=== PATIENT | female | born 1950 | race Caucasian/White ===

== ENCOUNTER 2019-09-16 12:39 | Emergency (ER) | payer MEDICARE, OTHER ==
--- NOTE | 2019-09-16 13:43 | ER Document Report ---
ED Medical Screen (RME) - General Stated Complaint: BACK PAIN Time Seen by Provider: 09/16/19 13:42 Primary Care Provider: KAREN SUAREZ MD [Primary Care Provider] - Follow up as needed Notes: 69-year-old female was sent from her primary care doctors for PE rule out. Patient states she has been having left mid back pain and pain upon deep breathing since Monday. Patient states she recently traveled long distance. Patient states she was being seen at her primary care doctor for a bladder infection and was sent here due to that. Patient states that while she was being checked at her primary care doctors her heart rate did go up. Lungs clear to auscultation bilaterally. Regular rate and rhythm. I have greeted and performed a rapid initial assessment of this patient. A comprehensive ED assessment and evaluation of the patient, analysis of test results and completion of the medical decision making process with be conducted by additional ED providers. - Related Data Allergies/Adverse Reactions: Sulfa (Sulfonamide Antibiotics) Allergy (Verified 05/07/14 16:19) Past Medical History - Past Medical History Cardiac Medical History: Reports: Hx Hypercholesterolemia, Hx Hypertension Past Surgical History: Reports: Hx Cholecystectomy, Hx Hysterectomy - Immunizations Hx Diphtheria, Pertussis, Tetanus Vaccination: Yes Physical Exam - Vital signs Vitals: Temp Pulse Resp BP Pulse Ox 98.7 F 83 16 145/66 H 95 09/16/19 12:45 09/16/19 12:45 09/16/19 12:45 09/16/19 12:45 09/16/19 12:45 Course - Vital Signs Vital signs: Temp Pulse Resp BP Pulse Ox 98.7 F 83 16 145/66 H 95 09/16/19 12:45 09/16/19 12:45 09/16/19 12:45 09/16/19 12:45 09/16/19 12:45 Doctor's Discharge - Discharge Referrals: KAREN SUAREZ MD [Primary Care Provider] - Follow up as needed
[2019-09-16 15:21] LABS: INTERNATIONAL RATION (INR) 0.92; PROTHROMBIN TIME 12.3 SEC (11.4-15.4)
[2019-09-16 16:27] LABS: ABSOLUTE BASOPHILS # (AUTO) 0.1 10^3/uL (0.0-0.2); ABSOLUTE EOSINOPHILS # (AUTO) 0.1 10^3/uL (0.0-0.6); ABSOLUTE LYMPHOCYTES (AUTO) 2.8 10^3/uL (0.5-4.7); ABSOLUTE MONOCYTES (AUTO) 0.9 10^3/uL (0.1-1.4); ABSOLUTE NEUT (AUTO) 7.8 10^3/uL (1.7-8.2); BASOPHILS % (AUTO) 1.1 % (0-2); EOSINOPHILS % (AUTO) 0.8 % (0-6); HEMOGLOBIN 13.4 g/dL (12.0-15.5); MEAN CORPUSCULAR HEMOGLOBIN 30.4 pg (27.0-33.4); MEAN CORPUSCULAR HGB CONC 33.6 g/dL (32.0-36.0); MEAN CORPUSCULAR VOLUME 90 fl (80-97); MONOCYTES % (AUTO) 7.6 % (3-13); PLATELET COUNT 335 10^3/uL (150-450); RED BLOOD COUNT 4.42 10^6/uL (3.72-5.28); RED CELL DISTRIBUTION WIDTH 13.6 % (11.5-14.0); SEGMENTED NEUTROPHILS % (AUTO) 66.5 % (42-78); TOTAL CELLS COUNTED % (AUTO) 100 %; WHITE BLOOD COUNT 11.7 10^3/uL (4.0-10.5)
[2019-09-16 16:43] LABS: ALBUMIN 3.8 g/dL (3.5-5.0); ALKALINE PHOSPHATASE 89 U/L (38-126); ANION GAP 10 (5-19); ASPARTATE AMINO TRANSFERASE 29 U/L (14-36); BILIRUBIN,DIRECT 0.2 mg/dL (0.0-0.4); BILIRUBIN,TOTAL 0.3 mg/dL (0.2-1.3); BLOOD UREA NITROGEN 12 mg/dL (7-20); CALCIUM 9.2 mg/dL (8.4-10.2); CARBON DIOXIDE 26 mmol/L (22-30); CHLORIDE 97 mmol/L (98-107); GLUCOSE 85 mg/dL (75-110); POTASSIUM 4.1 mmol/L (3.6-5.0); TOTAL PROTEIN 6.9 g/dL (6.3-8.2)
--- NOTE | 2019-09-16 17:56 | RADIOLOGY REPORT (SQ) ---
EXAM DESCRIPTION: CTA CHEST COMPLETED DATE/TIME: 09/16/2019 5:09 pm REASON FOR STUDY: pleuritic pain, recent long distance travel COMPARISON: None. TECHNIQUE: CT scan of the chest performed using helical scanning technique with dynamic intravenous contrast injection. Images reviewed with lung, soft tissue and bone windows. Reconstructed coronal and sagittal MPR images reviewed. Additional 3 dimensional post-processing performed to develop Maximal Intensity Projection images (PA P). All images stored on PACS. All CT scanners at this facility use dose modulation, iterative reconstruction, and/or weight based d osing when appropriate to reduce radiation dose to as low as reasonably achievable (ALARA). [facility]: Dose Right [facility]: CareDose [facility]: Dose Right [facility]: Teradose 4D [facility]: SignalFuse CONTRAST TYPE AND DOSE: contrast/concentration: Isovue 350.00 mg/ml; Total Contrast Delivered: 61.0 ml; Total Saline Delivered: 80.0 ml Contrast bolus optimized for the pulmonary arteries. Not diagnostic for the aorta. RENAL FUNCTION: GFR > 60. RADIATION DOSE: CT Rad equipment meets quality standard of care and radiation dose reduction techniq ues were employed. CTDIvol: 9.9 - 15.0 mGy. DLP: 544 mGy-cm. . LIMITATIONS: None. FINDINGS: LUNGS AND PLEURA: No pneumothorax. Scattered subpleural pulmonary nodules, largest in the inferior lingula measuring 8 mm. No pleural effusions. AORTA AND GREAT VESSELS: No aneurysm. Contrast bolus not optimized for the aorta. HEART: No pericardial effusion. No significant coronary artery calcifications. PULMONARY ARTERIES: No emboli visualized in the main pulmonary arteries or the segmental branches. HILAR AND MEDIASTINAL STRUCTURES: Scattered nodes, several calcified. HARDWARE: None in the chest. UPPER ABDOMEN: No significant findings. Limited exam. THYROID AND OTHER SOFT TISSUES: No masses. No adenopathy. BONES: No acute or significant finding. 3D MIPS: Confirm above findings. OTHER: No other significant finding. IMPRESSION: No emboli visualized in the main pulmonary arteries or the segmental branches. Scattered subpleural pulmonary nodules, largest in the inferior lingula measuring 8 mm, and scattered mediasti nal nodes, many calcified suggesting old granulomatous disease. COMMENT: Quality ID # [id number]: Final reports with documentation of one or more dose reduction techniques (e.g., Automated exposure control, adjustment of the mA and/or kV according to patient size, use of iterative reconstruction technique) TECHNICAL DOCUMENTATION: JOB ID: [id number] [place]-72 2010 [employer]- All Rights Reserved Reading location - IP/workstation name: [email or web address]
--- NOTE | 2019-09-16 18:08 | ER Document Report ---
ED General - General Chief Complaint: Back Pain Stated Complaint: BACK PAIN Time Seen by Provider: 09/16/19 13:42 Primary Care Provider: KAREN SUAREZ MD [ACTIVE STAFF] - Follow up as needed Mode of Arrival: Ambulatory Information source: Patient - [facility] Notes: Patient presents with upper back pain. In mid back pain. She went and saw her primary provider today who referred her here for a CTA. She has had some recent traveling to the [facility]. Patient has no previous history of PEs or DVTs. Patient has had no significant cough cold or congestion. The pain is worse with a deep breath or movement. Is better with rest. It is a sharp pain. Is mild to moderate. Is located in the center of the upper part of her back. It does radiate across her back. No chest pain however. No abdominal pain. No significant leg swelling. - Related Data Allergies/Adverse Reactions: Sulfa (Sulfonamide Antibiotics) Allergy (Verified 05/07/14 16:19) Home Medications: pt unable to recall at this time Past Medical History - General Information source: Patient - Social History Smoking Status: Never Smoker Frequency of alcohol use: None Drug Abuse: None Family History: Reviewed & Not Pertinent Patient has suicidal ideation: No Patient has homicidal ideation: No - Past Medical History Cardiac Medical History: Reports: Hx Hypercholesterolemia, Hx Hypertension Past Surgical History: Reports: Hx Cholecystectomy, Hx Hysterectomy - Immunizations Hx Diphtheria, Pertussis, Tetanus Vaccination: Yes Review of Systems - Review of Systems Constitutional: denies: Chills, Fever Cardiovascular: denies: Chest pain, Palpitations Respiratory: Short of breath. denies: Cough -: Yes All other systems reviewed and negative Physical Exam - Vital signs Vitals: Temp Pulse Resp BP Pulse Ox 98.7 F 83 16 145/66 H 95 09/16/19 12:45 09/16/19 12:45 09/16/19 12:45 09/16/19 12:45 09/16/19 12:45 Interpretation: Normal - General General appearance: Appears well, Alert - HEENT Head: Normocephalic, Atraumatic Eyes: Normal Pupils: PERRL - Respiratory Respiratory status: No respiratory distress Chest status: Nontender Breath sounds: Normal Chest palpation: Normal - Cardiovascular Rhythm: Regular Heart sounds: Normal auscultation Murmur: No - Abdominal Inspection: Normal Distension: No distension Bowel sounds: Normal Tenderness: Nontender Organomegaly: No organomegaly - Back Back: Normal, Nontender - Extremities General upper extremity: Normal inspection, Nontender, Normal color, Normal ROM, Normal temperature General lower extremity: Normal inspection, Nontender, Normal color, Normal ROM, Normal temperature, Normal weight bearing. No: Favian's sign - Neurological Neuro grossly intact: Yes Cognition: Normal Orientation: AAOx4 Ozone Coma Scale Eye Opening: Spontaneous Ozone Coma Scale Verbal: Oriented Bayron Coma Scale Motor: Obeys Commands Ozone Coma Scale Total: 15 Speech: Normal Motor strength normal: LUE, RUE, LLE, RLE Sensory: Normal - Psychological Associated symptoms: Normal affect, Normal mood - Skin Skin Temperature: Warm Skin Moisture: Dry Skin Color: Normal Course - Vital Signs Vital signs: Temp Pulse Resp BP Pulse Ox 98.7 F 83 16 145/66 H 95 09/16/19 12:45 09/16/19 12:45 09/16/19 12:45 09/16/19 12:45 09/16/19 12:45 - Laboratory Result Diagrams: 09/16/19 16:10 09/16/19 16:10 Laboratory results interpreted by me: 09/16/19 09/16/19 16:10 16:10 WBC 11.7 H Sodium 132.7 L Chloride 97 L Creatinine 0.48 L - Diagnostic Test Radiology reviewed: Image reviewed, Reports reviewed - EKG Interpretation by Ct EKG shows normal: Sinus rhythm Rate: Normal - 67 Rhythm: NSR Gratis/QRS: Left axis deviation. No: Right axis deviation Discharge - Discharge Clinical Impression: Thoracic back pain Qualifiers: Chronicity: acute Back pain laterality: midline Qualified Code(s): M54.6 - Pain in thoracic spine Condition: Stable Disposition: HOME, SELF-CARE Additional Instructions: Please follow-up with your primary care doctor as scheduled Referrals: KAREN SUAREZ MD [ACTIVE STAFF] - Follow up as needed
[2019-09-16 18:17] VITALS: BP 160/73
--- NOTE | 2019-09-16 20:33 | EKG REPORT ---
SEVERITY:- ABNORMAL ECG - SINUS RHYTHM BORDERLINE LEFT AXIS DEVIATION NONSPECIFICANTEROSEPTAL ST-T CHANGES : Confirmed by: Rocael Bender MD 16-Sep-2019 20:32:26
== END 2019-09-16 18:18 | disposition home or self-care (01) ==
LOC: ER 12:39
DX: M54.6 Pain in thoracic spine (principal); R07.81 Pleurodynia; E78.00 Pure hypercholesterolemia, unspecified; I10 Essential (primary) hypertension; Z88.2 Allergy status to sulfonamides; Z90.49 Acquired absence of other specified parts of digestive tract; Z90.710 Acquired absence of both cervix and uterus
CPT/HCPCS: 36415; 71275; 80053; 84484; 85025; 85610; 85730; 93005; 93010; 99284